=== PATIENT | female | born 1975 | race African-American/Black ===

== ENCOUNTER 2022-06-07 10:08 | Emergency (ER) | payer BC ==
[2022-06-07] MEDS ORDERED: Lisinopril/Hydrochlorothiazide 20/25 mg Tablet PO SCH (11:30)
== END 2022-06-07 13:07 | disposition home or self-care (01) ==
LOC: ERS 10:08
DX: I10 Essential (primary) hypertension (principal); M25.561 Pain in right knee; E11.9 Type 2 diabetes mellitus without complications; F17.290 Nicotine dependence, other tobacco product, uncomplicated
CPT/HCPCS: 99283